=== PATIENT | male | born 1990 | race Caucasian/White ===

== ENCOUNTER 2016-06-03 22:05 | Emergency (ER) | payer OTHER ==
[~2016-06-03] VITALS: Ht 172.7 cm; Wt 83.7 kg
[2016-06-03 22:17] VITALS: TEMP 37; Ht 172.7 cm; Wt 83.7 kg
[2016-06-03] MEDS ORDERED: ATIVAN PO (22:30)
[2016-06-03] MEDS ORDERED: LORAZEPAM 1 MG TAB PO STA (23:04)
[2016-06-03 23:18] LABS: URINE APPEARANCE CLOUDY (CLEAR); URINE BILIRUBIN NEG (NEG); URINE COLOR YELLOW; URINE EPITHELIAL CELL AUTO 0-5 /lpf (0-5); URINE NITRITE NEG (NEG); URINE PH 7.5 (4.5-7.5); URINE SPECIFIC GRAVITY 1.028 (1.000-1.030); UROBILINOGEN NEG (NEG); ZZUR CULT IF INDIC CLEAN CATCH NO
[2016-06-03 23:22] LABS: BASO % 0.1 %; BASO ABS # 0.01 K/uL (0-0.2); COMPLETE YES; EOS % 0.4 %; HEMATOCRIT 45.7 % (42-52); IG% 0.2 %; LYMPH % 30.9 %; MEAN CELL VOLUME 85.1 fL (80-100); MEAN CORPUSCULAR HEMOGLOBIN 30.5 pg (25-34); MEAN CORPUSCULAR HGB CONC 35.9 g/dl (32-36); MEAN PLATELET VOLUME 10.3 fL (7.4-10.4); MONO % 8.3 %; NEUT % 60.1 %; PLATELET COUNT 303 K/uL (130-400); RED BLOOD COUNT 5.37 M/uL (4.7-6.1); WHITE BLOOD COUNT 9.38 K/uL (4.8-10.8)
[2016-06-03 23:26] LABS: MANUAL MICROSCOPIC REQUIRED? NO; REVIEW REQ? NO
[2016-06-03] MEDS ORDERED: LORAZEPAM 1 MG TAB SL STA (23:44)
[2016-06-03 23:55] LABS: ALB/GLOB RATIO 1.1 (0.9-2); BUN/CREATININE RATIO 17.1 (10-20); CALCIUM 9.4 mg/dl (8.5-10.1); CREATININE 0.99 mg/dl (0.60-1.40); POTASSIUM 3.8 mmol/L (3.5-5.1); THYROID STIMULATING HORMONE 2.94 uIu/ml (0.300-4.500)
[2016-06-04 00:12] LABS: ACETAMINOPHEN < 2 ug/ml (10-30)
[2016-06-04 00:23] LABS: BENZODIAZEPINE, URINE NEG (NEG); COCAINE,URINE NEG (NEG); PHENCYCLIDINE, URINE NEG (NEG)
--- NOTE | 2016-06-04 06:29 | EMERGENCY ROOM VISIT NOTE ---
History Report prepared by Con: Avtar Parker Under the Supervision of: Dr. Vega Perez M.D. First contact with patient: 22:57 Chief Complaint: MENTAL HEALTH EVALUATION Stated Complaint: MENTAL HEALTH History of Present Illness The patient is a 25 year old male who presents to the Emergency Room for an acute mental health evaluation after making suicidal and homicidal threats earlier today. The patient has a history of anger issues. He is on parole after recently being released from skilled nursing, which he was in for aggravated and indecent assault. The police brought the patient to the ED this evening with a 302 after he was making suicidal and homicidal threats to his family. The patient has problems with his mother's significant other. The patient admits that he has thought about hurting himself. He did not make any attempts to hurt himself or others. The patient was in skilled nursing for three total years and was there on four different occasions. The patient denies depression but admits to experiencing anxiety. The patient has been prescribed Depakote and Zyprexa in the past. The patient admits to taking Ativan which he got from his grandmother. He denies any other drug use. He denies any medical problems. Per 302 petition from the patient's mother, he is becoming increasingly unstable at home. He has not been bathing himself, refuses to take his schizophrenia medications, is making hostile statements to his family, and is making statements that he would commit suicide. Source of History: patient, parent (302) Onset: earlier today Position: other (psyche) Quality: other (mental health evauation) Timing: other (acute) Modifying Factors (Worsening): other (family problems) Review of Systems See HPI for pertinent positives & negatives. A total of 10 systems reviewed and were otherwise negative. Past Medical & Surgical Medical Problems: (1) Alcohol abuse (2) Anger Problems (3) Antisocial personality disorder (4) Benign hypertension (5) Drug abuse (6) Polysubstance dependence (7) skin problems (8) stomach problmes (9) Tonsillectomy (10) urinary problmes Family History FH: heart disease FHx: cancer FHx: gallbladder disease Hypertension Social History Smoking Status: Unknown if Ever Smoked Marital Status: single Housing Status: lives with family Occupation Status: employed Current/Historical Medications Scheduled PRN [Ativan], 1 TAB PO DIRECTED PRN for AN Allergies Coded Allergies: Venlafaxine (Verified Allergy, Severe, RASH, 06/03/16) Latex1 -Allergic Contact Dermititis (Verified Allergy, Unknown, PT UNABLE TO EXPLAIN REACTION AT TIME OF PAT, 06/03/16) Physical Exam Vital Signs Date Time Temp Pulse Resp B/P Pulse Ox O2 Delivery O2 Flow Rate FiO2 06/04/16 14:00 85 18 115/72 98 Room Air 06/04/16 10:04 51 16 109/71 98 06/04/16 07:19 51 20 106/56 100 06/04/16 06:50 64 20 104/68 98 06/04/16 00:23 96 18 145/89 99 Room Air 06/03/16 22:17 37.0 98 16 158/96 98 Room Air Physical Exam GENERAL: Patient is anxious appearing and in no acute distress. HEENT: No acute trauma, normocephalic atraumatic, mucous membranes moist, no nasal congestion, no scleral icterus. NECK: No stridor, no adenopathy, no meningismus, trachea is midline. LUNGS: No dyspnea. Clear to auscultation and equal bilaterally. No wheeze, no rhonchi. HEART: Regular rate and rhythm. No murmurs, rubs, gallops appreciated. ABDOMEN: Soft, nontender, bowel sounds positive, no masses appreciated, no peritonitis. BACK: No midline tenderness, no CVA tenderness EXTREMITIES: Normal motion all extremities, no cyanosis, no edema. NEUROLOGIC: Alert and oriented, no acute motor or sensory deficits, no focal weakness, cranial nerves grossly intact. SKIN: No rash, no jaundice, no diaphoresis. PSYCH: Periodic tangential thought. Admits to suicidal thoughts without specific plan, denies homicidal thoughts or hallucinations, admits anxiety, denies depression. Medical Decision & Procedures Laboratory Results 06/03/16 23:08 Red Blood Count 5.37, Mean Corpuscular Volume 85.1, Mean Corpuscular Hemoglobin 30.5, Mean Corpuscular Hemoglobin Concent 35.9, Mean Platelet Volume 10.3, Neutrophils (%) (Auto) 60.1, Lymphocytes (%) (Auto) 30.9, Monocytes (%) (Auto) 8.3, Eosinophils (%) (Auto) 0.4, Basophils (%) (Auto) 0.1, Neutrophils # (Auto) 5.63, Lymphocytes # (Auto) 2.90, Monocytes # (Auto) 0.78, Eosinophils # (Auto) 0.04, Basophils # (Auto) 0.01 06/03/16 23:08 Test 06/03/16 22:13 06/03/16 23:08 Urine Color YELLOW Urine Appearance CLOUDY (CLEAR) Urine pH 7.5 (4.5-7.5) Urine Specific [place] 1.028 (1.000-1.030) Urine Protein NEG (NEG) Urine Glucose (UA) NEG (NEG) Urine Ketones NEG (NEG) Urine Occult Blood NEG (NEG) Urine Nitrite NEG (NEG) Urine Bilirubin NEG (NEG) Urine Urobilinogen NEG (NEG) Urine Leukocyte Esterase NEG (NEG) Urine WBC (Auto) 0 /hpf (0-5) Urine RBC (Auto) 0-4 /hpf (0-4) Urine Hyaline Casts (Auto) 1-5 /lpf (0-5) Urine Epithelial Cells (Auto) 0-5 /lpf (0-5) Urine Bacteria (Auto) NEG (NEG) Urine Opiates Screen NEG (NEG) Urine Methadone, Qualitative NEG (NEG) Urine Barbiturates NEG (NEG) Urine Phencyclidine (PCP) Level NEG (NEG) Ur Amphetamine/Methamphetamine NEG (NEG) MDMA (Ecstasy) Screen NEG (NEG) Urine Benzodiazepines Screen NEG (NEG) Urine Cocaine Metabolite NEG (NEG) Urine Marijuana (THC) NEG (NEG) White Blood Count 9.38 K/uL (4.8-10.8) Red Blood Count 5.37 M/uL (4.7-6.1) Hemoglobin 16.4 g/dL (14.0-18.0) Hematocrit 45.7 % (42-52) Mean Corpuscular Volume 85.1 fL (80-100) Mean Corpuscular Hemoglobin 30.5 pg (25-34) Mean Corpuscular Hemoglobin Concent 35.9 g/dl (32-36) Platelet Count 303 K/uL (130-400) Mean Platelet Volume 10.3 fL (7.4-10.4) Neutrophils (%) (Auto) 60.1 % Lymphocytes (%) (Auto) 30.9 % Monocytes (%) (Auto) 8.3 % Eosinophils (%) (Auto) 0.4 % Basophils (%) (Auto) 0.1 % Neutrophils # (Auto) 5.63 K/uL (1.4-6.5) Lymphocytes # (Auto) 2.90 K/uL (1.2-3.4) Monocytes # (Auto) 0.78 K/uL (0.11-0.59) Eosinophils # (Auto) 0.04 K/uL (0-0.5) Basophils # (Auto) 0.01 K/uL (0-0.2) RDW Standard Deviation 38.4 fL (36.4-46.3) RDW Coefficient of Variation 12.5 % (11.5-14.5) Immature Granulocyte % (Auto) 0.2 % Immature Granulocyte # (Auto) 0.02 K/uL (0.00-0.02) Anion Gap 10.0 mmol/L (3-11) Est Creatinine Clear Calc Drug Dose 119.2 ml/min Estimated GFR () 121.3 Estimated GFR (Non- 104.7 BUN/Creatinine Ratio 17.1 (10-20) Calcium Level 9.4 mg/dl (8.5-10.1) Total Bilirubin 0.3 mg/dl (0.2-1) Aspartate Amino Transf (AST/SGOT) 25 U/L (15-37) Alanine Aminotransferase (ALT/SGPT) 44 U/L (12-78) Alkaline Phosphatase 72 U/L (45-117) Total Protein 8.2 gm/dl (6.4-8.2) Albumin 4.3 gm/dl (3.4-5.0) Globulin 3.9 gm/dl (2.5-4.0) Albumin/Globulin Ratio 1.1 (0.9-2) Thyroid Stimulating Hormone (TSH) 2.940 uIu/ml (0.300-4.500) Chemistry Specimen Hemolysis Salicylates Level < 1.7 mg/dl (2.8-20) Acetaminophen Level < 2 ug/ml (10-30) Ethyl Alcohol mg/dL < 3.0 mg/dl (0-3) Laboratory results as reviewed by me. Medications Administered Medications (Trade) Dose Ordered Sig/Neelima Route Start Time Stop Time Status Last Admin Dose Admin Lorazepam (Ativan Tab) 1 mg NOW STAT PO 06/03/16 23:04 06/03/16 23:05 DC 06/03/16 23:11 1 MG Lorazepam (Ativan Tab) 1 mg NOW STAT SL 06/03/16 23:44 06/03/16 23:45 DC 06/03/16 23:44 1 MG ED Course 2300: The patient was evaluated in room A2. A complete history and physical exam was performed. 2304: Ativan 1 mg PO. 2344: Ativan 1 mg SL. 0002: The patient is feeling more calm. 0027: [facility] is on their way to see the patient. 0155: The patient is talking with [facility]. 0215: [facility] advises inpatient treatment. 0310: The patient is watching television. 0534: Bed search is still being conducted. 0730: The patient was signed out to Dr. Pretty at shift change. Medical Decision Differential: Mood Disorder, Overdose, Infectious, Electrolyte Abnormality, Cardiac, Hepatic, Endocrine, Toxicologic, Neurologic, amongst other pathologies entertained. 25 yr old male arrives this evening under 302 petition for mental health evaluation. Patient admits suicidal thoughts and depression with severe anxiety. 302 petition notes lack of personal care as outpatient along with not taking his psych meds. Patient intense/anxious on arrival improving with ativan po. Cooperative while in department without issues. Patient wishes to sign himself in under 201 for mental health treatment/evaluation which seems reasonable. Signed out to Dr Pretty awaiting mental health placement. Impression Primary Impression: Suicidal ideation Additional Impressions: Depression, Acute anxiety Scribe Attestation The scribe's documentation has been prepared under my direction and personally reviewed by me in its entirety. I confirm that the note above accurately reflects all work, treatment, procedures, and medical decision making performed by me. Departure Information Dispostion Still a Patient Referrals No Doctor, Assigned (PCP) Forms HOME CARE DOCUMENTATION FORM, IMPORTANT VISIT INFORMATION Patient Instructions A Signature Page, My [facility]
[2016-06-04 14:00] VITALS: BP 115/72; PULSE 85; O2SAT 98
[2016-06-06 13:29] LABS: SYNTHETIC CANNABINOIDS QL URIN NEGATIVE (Negative)
== END 2016-06-04 14:03 ==
LOC: EDBD 22:05 → C.EDA 22:07
DX: F32.9 Major depressive disorder, single episode, unspecified (principal); F41.9 Anxiety disorder, unspecified; R45.851 Suicidal ideations; F10.10 Alcohol abuse, uncomplicated; F60.2 Antisocial personality disorder; I10 Essential (primary) hypertension; Z82.49 Family history of ischemic heart disease and other diseases of the circulatory system

== ENCOUNTER 2016-07-03 12:12 | Emergency (ER) | payer OTHER ==
[~2016-07-03] VITALS: Ht 177.8 cm; Wt 93.2 kg
[~2016-07-03 12:12] MED LIST: ATIVAN PO
[2016-07-03 12:16] VITALS: TEMP 36.8; Ht 177.8 cm; Wt 93.2 kg
[2016-07-03] MEDS ORDERED: LORAZEPAM 1 MG TAB SL STA ×2 (13:08→14:45)
[2016-07-03] MEDS ORDERED: ATIVAN PO (13:20)
[2016-07-03] MEDS ORDERED: [UNRECOGNIZED DRUG - CODE] INJ (13:20)
[2016-07-03 13:51] LABS: BASO % 0.1 %; BASO ABS # 0.01 K/uL (0-0.2); COMPLETE YES; EOS % 0.9 %; HEMATOCRIT 42.4 % (42-52); IG% 0.2 %; LYMPH % 22.3 %; LYMPH ABS # 1.79 K/uL (1.2-3.4); MEAN CELL VOLUME 87.4 fL (80-100); MEAN CORPUSCULAR HEMOGLOBIN 30.5 pg (25-34); MEAN CORPUSCULAR HGB CONC 34.9 g/dl (32-36); MEAN PLATELET VOLUME 10.2 fL (7.4-10.4); MONO % 10.4 %; NEUT % 66.1 %; PLATELET COUNT 280 K/uL (130-400); RED BLOOD COUNT 4.85 M/uL (4.7-6.1); WHITE BLOOD COUNT 8.04 K/uL (4.8-10.8)
[2016-07-03 13:59] LABS: BENZODIAZEPINE, URINE NEG (NEG); COCAINE,URINE NEG (NEG); PHENCYCLIDINE, URINE NEG (NEG)
[2016-07-03 14:11] LABS: BUN/CREATININE RATIO 18.3 (10-20); CALCIUM 9.1 mg/dl (8.5-10.1); CREATININE 0.93 mg/dl (0.60-1.40); POTASSIUM 4.2 mmol/L (3.5-5.1)
[2016-07-03 14:21] LABS: ALKALINE PHOSPHATASE 60 U/L (45-117); ALT/SGPT 42 U/L (12-78); AST/SGOT 23 U/L (15-37)
[2016-07-03 14:24] LABS: ACETAMINOPHEN < 2 ug/ml (10-30)
--- NOTE | 2016-07-03 14:59 | EMERGENCY ROOM VISIT NOTE ---
History Report prepared by Con: Leticia Montalvo Under the Supervision of: Dr. Jacob Bella M.D. First contact with patient: 12:58 Chief Complaint: MENTAL HEALTH EVALUATION Stated Complaint: PANIC ATTACK, SUICIDAL THOUGHTS History of Present Illness The patient is a 25 year old male who presents to the Emergency Room with complaints of resolved suicidal ideation that occurred a couple days ago. The patient states that he tried to find his dad's gun a couple days ago because he wanted to kill himself. He states that he was released from [facility] one to two weeks ago with new medications. They started him on Depakote and Clozaril, which he had never been on before. He took the medications for one week and then he developed urinary incontinence at night, increased drooling, chest pain , uncontrollable head movements and "uncontrollable noises." He states that he is still experiencing constant panic attacks and could not tolerate the symptoms so he stopped taking the medications. The patient states that he doesn' t want to and wants to try the psych route again to get the right medications. He states that he loves his family and he does not want to go back to retirement for 15 months. He adds that he was diagnosed with schizophrenia. The patient states that he occasionally uses marijuana, but denies any other recreational drug use. He denies recent aspirin or Tylenol use and also denies trying to overdose on medications. The patient is also experiencing abdominal stiffness and states that there is something wrong with his liver. He states that he was negative for hepatitis. He denies numbness of weakness. The patient states that when he was in group home they put him on Zyprexa and BuSpar, which seemed to work well for him. The patient states that he was not on medications after getting out of group home and was not on any medications prior to going to [facility]. Source of History: patient Onset: a couple days ago Position: head Quality: other (suicidal ideation) Timing: resolved Associated Symptoms: No numbness, No weakness Note: panic attacks, abdominal stiffness Review of Systems See HPI for pertinent positives & negatives. A total of 10 systems reviewed and were otherwise negative. Past Medical & Surgical Medical Problems: (1) Alcohol abuse (2) Anger Problems (3) Antisocial personality disorder (4) Benign hypertension (5) Drug abuse (6) Polysubstance dependence (7) skin problems (8) stomach problmes (9) Tonsillectomy (10) urinary problmes Old medical records were reviewed. Nurse's notes were reviewed and I agree with. Family History FH: heart disease FHx: cancer FHx: gallbladder disease Hypertension Social History Smoking Status: Current Every Day Smoker Marital Status: single Housing Status: lives with family Occupation Status: employed Current/Historical Medications Scheduled Paliperidone Palmitate (Invega Sustenna), Unknown Dose INJ MONTHLY Allergies Coded Allergies: Venlafaxine (Verified Allergy, Severe, RASH, 06/03/16) Latex1 -Allergic Contact Dermititis (Verified Allergy, Unknown, PT UNABLE TO EXPLAIN REACTION AT TIME OF PAT, 06/03/16) Physical Exam Vital Signs Date Time Temp Pulse Resp B/P Pulse Ox O2 Delivery O2 Flow Rate FiO2 07/03/16 14:10 89 18 149/98 97 Room Air 07/03/16 12:16 36.8 82 20 135/84 95 Room Air Physical Exam General: Well developed well nourished mildly anxious non-ill appearing young male in no acute distress, breathing comfortably on room air. Normal speech HEENT: Normal cephalic atraumatic. Pupils are equal round and reactive to light. Extraocular movements are intact. Oropharynx is pink with moist mucous membranes. No swelling of the mouth lips or tongue. Neck: Supple with a midline trachea. No meningeal signs or stiffness, no JVD or bruits. No Stridor. Chest: Clear to auscultation bilaterally. No wheezes or rhonchi. No increased work of breathing. Heart: regular rate and rhythm. Abdomen: Soft nontender, nondistended without rebound guarding or rigidity. Extremities: No cyanosis clubbing or edema. No calf tenderness or assymetry Spine/Back. Non tender to palpation. No CVA tenderness Skin: Good turgor without rashes. Neurologic exam: Cranial nerves two through 12 are intact. Motor and sensation are intact and symmetrical throughout. Psych: Normal thought process. Had suicidal ideations a couple days ago but none now. Mildly anxious. Medical Decision & Procedures Laboratory Results 07/03/16 13:35 Red Blood Count 4.85, Mean Corpuscular Volume 87.4, Mean Corpuscular Hemoglobin 30.5, Mean Corpuscular Hemoglobin Concent 34.9, Mean Platelet Volume 10.2, Neutrophils (%) (Auto) 66.1, Lymphocytes (%) (Auto) 22.3, Monocytes (%) (Auto) 10.4, Eosinophils (%) (Auto) 0.9, Basophils (%) (Auto) 0.1, Neutrophils # (Auto ) 5.31, Lymphocytes # (Auto) 1.79, Monocytes # (Auto) 0.84, Eosinophils # (Auto ) 0.07, Basophils # (Auto) 0.01 07/03/16 13:35 Test 07/03/16 12:55 07/03/16 13:35 Urine Opiates Screen NEG (NEG) Urine Methadone, Qualitative NEG (NEG) Urine Barbiturates NEG (NEG) Urine Phencyclidine (PCP) Level NEG (NEG) Ur Amphetamine/Methamphetamine NEG (NEG) MDMA (Ecstasy) Screen NEG (NEG) Urine Benzodiazepines Screen NEG (NEG) Urine Cocaine Metabolite NEG (NEG) Urine Marijuana (THC) POS (NEG) White Blood Count 8.04 K/uL (4.8-10.8) Red Blood Count 4.85 M/uL (4.7-6.1) Hemoglobin 14.8 g/dL (14.0-18.0) Hematocrit 42.4 % (42-52) Mean Corpuscular Volume 87.4 fL (80-100) Mean Corpuscular Hemoglobin 30.5 pg (25-34) Mean Corpuscular Hemoglobin Concent 34.9 g/dl (32-36) Platelet Count 280 K/uL (130-400) Mean Platelet Volume 10.2 fL (7.4-10.4) Neutrophils (%) (Auto) 66.1 % Lymphocytes (%) (Auto) 22.3 % Monocytes (%) (Auto) 10.4 % Eosinophils (%) (Auto) 0.9 % Basophils (%) (Auto) 0.1 % Neutrophils # (Auto) 5.31 K/uL (1.4-6.5) Lymphocytes # (Auto) 1.79 K/uL (1.2-3.4) Monocytes # (Auto) 0.84 K/uL (0.11-0.59) Eosinophils # (Auto) 0.07 K/uL (0-0.5) Basophils # (Auto) 0.01 K/uL (0-0.2) RDW Standard Deviation 42.1 fL (36.4-46.3) RDW Coefficient of Variation 13.2 % (11.5-14.5) Immature Granulocyte % (Auto) 0.2 % Immature Granulocyte # (Auto) 0.02 K/uL (0.00-0.02) Anion Gap 10.0 mmol/L (3-11) Est Creatinine Clear Calc Drug Dose 138.0 ml/min Estimated GFR () 130.9 Estimated GFR (Non- 112.9 BUN/Creatinine Ratio 18.3 (10-20) Calcium Level 9.1 mg/dl (8.5-10.1) Total Bilirubin 0.4 mg/dl (0.2-1) Direct Bilirubin < 0.1 mg/dl (0-0.2) Aspartate Amino Transf (AST/SGOT) 23 U/L (15-37) Alanine Aminotransferase (ALT/SGPT) 42 U/L (12-78) Alkaline Phosphatase 60 U/L (45-117) Total Protein 7.8 gm/dl (6.4-8.2) Albumin 3.9 gm/dl (3.4-5.0) Lipase 114 U/L (73-393) Thyroid Stimulating Hormone (TSH) 4.220 uIu/ml (0.300-4.500) Salicylates Level < 1.7 mg/dl (2.8-20) Acetaminophen Level < 2 ug/ml (10-30) Ethyl Alcohol mg/dL < 3.0 mg/dl (0-3) Laboratory studies as stated above per my review. Medications Administered Medications (Trade) Dose Ordered Sig/Neelima Route Start Time Stop Time Status Last Admin Dose Admin Lorazepam (Ativan Tab) 1 mg NOW STAT SL 07/03/16 13:08 07/03/16 13:09 DC 07/03/16 13:12 1 MG Lorazepam (Ativan Tab) 1 mg NOW STAT SL 07/03/16 14:45 07/03/16 14:46 DC 07/03/16 15:08 1 MG ED Course 1301: Past medical records reviewed. The patient was evaluated in room A8, and a complete history and physical examination were performed. 1308: Ordered Ativan Tab 1 mg SL 1445: Ordered Ativan Tab 1 mg SL 1543: The psych case picker informed me that they are waiting to hear back from [place]. 1608: The psych case picker informed me that the patient is going to [place]. Medical Decision Differentials include, but are not limited to; anxiety, depression, suicidal ideation. This patient comes in as described above. He is placed in room 8A. He is here for treatment and evaluation of depression and suicidal ideations. He was recently hospitalized for this. He is here voluntarily. He denies any actually had any suicidal attempts but has thought about getting his father's gun but couldn't find it. He was given Ativan 1 mg twice to use in the ER to help with his anxiety. He remained stable with this. He had a full workup for medical clearance. He has nothing to suggest an acute electrolyte or metabolic or toxicologic or infectious process. He was medically cleared. He was evaluated by psychiatric case management team. He will be sent to the [facility] voluntarily for inpatient treatment and evaluation. Impression Primary Impression: Anxiety Additional Impression: Suicidal ideation Scribe Attestation The scribe's documentation has been prepared under my direction and personally reviewed by me in its entirety. I confirm that the note above accurately reflects all work, treatment, procedures, and medical decision making performed by me. Departure Information Dispostion [facility] Referrals No Doctor, Assigned (PCP) Forms HOME CARE DOCUMENTATION FORM, IMPORTANT VISIT INFORMATION Patient Instructions My [facility] Problem Qualifiers
[2016-07-03 18:05] VITALS: BP 124/86; PULSE 82; O2SAT 97
== END 2016-07-03 18:11 ==
LOC: C.EDB 12:13 → CANBEDREQ 16:44 → C.EDA 18:11
DX: F41.9 Anxiety disorder, unspecified (principal); R45.851 Suicidal ideations; F17.200 Nicotine dependence, unspecified, uncomplicated; I10 Essential (primary) hypertension; F60.2 Antisocial personality disorder